=== PATIENT | male | born 1975 | race Two or more races ===

== ENCOUNTER 2020-03-02 07:41 | Emergency (ER) | payer OTHER ==
[2020-03-02 07:48] VITALS: BP 119/76; PULSE 88; TEMP 97; BMI 31.6
--- NOTE | 2020-03-02 07:50 | PDOC ---
Rapid Medical Evaluation Time Seen by Provider: 03/02/20 07:45 Medical Evaluation: Allergies Allergy/AdvReac Type Severity Reaction Status Date / Time No Known Allergies Allergy Verified 09/07/15 04:46 03/02/20 07:45 The patient is a 45 y/o M who presents to the ER for a bee sting to the back of the neck sustained just prior to arrival. Denies allergies to bees. Denies shortness of breath, wheezing, light headed, difficulty swallowing ROS RXAM: A/P: Bee sting On exam localized swelling to the L posterior neck. No evidence of erythema or secondary signs of allergic reaction Air way is open clear and maintained Ice DC home with return precautions Discharge Disposition - Diagnosis Bee sting Qualifiers: Encounter type: initial encounter Injury intent: accidental or unintentional Qualified Code(s): T63.441A - Toxic effect of venom of bees, accidental (unintentional), initial encounter - Discharge Dispostion Disposition: HOME Condition at time of disposition: Stable Decision to Admit order: No - Referrals - Patient Instructions Printed Discharge Instructions: Insect Bites and Stings Additional Instructions: You were seen for your bee sting Ice will help with the area. Follow up with your primary care doctor as needed Return to the ER for any new or worsening symptoms - Post Discharge Activity
== END 2020-03-02 08:02 | disposition home or self-care (01) ==
LOC: JER 07:41
DX: T63.441A Toxic effect of venom of bees, accidental (unintentional), initial encounter (principal)
CPT/HCPCS: 99281-25

== ENCOUNTER 2021-08-22 08:28 | Emergency (ER) | payer OTHER ==
[2021-08-22 08:44] VITALS: TEMP 97.4; BMI 33.3
[2021-08-22 11:02] LABS: HEMATOCRIT 46.9 % (35.4-49); HEMOGLOBIN 15.5 GM/dL (11.7-16.9); MCH 31.4 pg (25.7-33.7); MCHC 33.1 g/dl (32.0-35.9); MEAN PLT VOLUME 8.9 fl (7.5-11.1); PLATELET COUNT 260 10^3/uL (134-434); RBC 4.94 M/mm3 (4.00-5.60); RDW 14.4 % (11.9-15.9); WHITE BLOOD COUNT 7.7 K/mm3 (4.0-10.0)
[2021-08-22 11:33] LABS: CHLORIDE 105 mmol/L (98-107); SODIUM 142 mmol/L (136-145)
[2021-08-22 11:34] LABS: ALBUMIN 3.9 g/dl (3.4-5.0); CALCIUM 9.3 mg/dL (8.5-10.1); GLUCOSE,RANDOM 87 mg/dL (74-106)
[2021-08-22 11:35] LABS: ANION GAP 11 MMOL/L (8-16); BLOOD UREA NITROGEN 11.1 mg/dL (7-18); CO2 25 mmol/L (21-32); MAGNESIUM 2.2 mg/dL (1.8-2.4)
[2021-08-22 11:38] LABS: SGPT/ALT 39 U/L (13-61)
[2021-08-22 11:39] LABS: CREATININE 1.2 mg/dL (0.55-1.3); SGOT/AST 24 U/L (15-37)
[2021-08-22 11:40] LABS: BILIRUBIN,TOTAL 0.5 mg/dL (0.2-1); TOT PROT 7.6 g/dl (6.4-8.2)
[2021-08-22 11:41] LABS: ALK PHOS 78 U/L (45-117)
[2021-08-22 11:55] LABS: URINE APPEARANCE CLEAR; URINE BILIRUBIN NEGATIVE (NEGATIVE); URINE COLOR YELLOW; URINE GLUCOSE (UA) NEGATIVE (NEGATIVE); URINE KETONE NEGATIVE (NEGATIVE); URINE LEUK ESTERASE NEGATIVE (NEGATIVE); URINE NITRITE NEGATIVE (NEGATIVE); URINE PROTEIN TRACE (NEGATIVE); URINE UROBILINOGEN 0.2 mg/dL (0.2-1.0)
[2021-08-22 12:12] LABS: METHADONE, UR NEGATIVE (NEGATIVE)
[2021-08-22 12:13] LABS: URINE BARBITURATES NEGATIVE (NEGATIVE)
[2021-08-22 12:20] LABS: COCAINE, UR POSITIVE (NEGATIVE); OPIATES, URI POSITIVE (NEGATIVE); PHENCYCLIDINE,URINE POSITIVE (NEGATIVE); URINE AMPHETAMINES POSITIVE (NEGATIVE); URINE BENZODIAZEPINES NEGATIVE (NEGATIVE)
[2021-08-22 13:29] VITALS: BP 117/77; PULSE 89
[2021-08-22 14:37] LABS: ANISOCYTOSIS 3+; MACROCYTOSIS 0; PLATELET ESTIMATE NORMAL
== END 2021-08-22 13:37 | disposition home or self-care (01) ==
LOC: JER 08:28
DX: T40.5X1A Poisoning by cocaine, accidental (unintentional), initial encounter (principal)
CPT/HCPCS: 36415; 71045-TC-FY; 80053; 80307; 81003; 82550; 82553; 82962; 83735; 84484; 85025; 87086; 93005; 93010; 99285-25; C9803; U0003; U0005

== ENCOUNTER 2021-09-16 01:09 | Inpatient (IN) | payer OTHER ==
[2021-09-16 01:49] VITALS: BMI 33.3
[2021-09-16] MEDS ORDERED: ACETAMINOPHEN 325 MG TABLET (FP) PO PRN (03:25)
[2021-09-16] MEDS ORDERED: MENTHOL/PHENOL 1 EACH UD MM PRN (03:25)
[2021-09-16] MEDS ORDERED: chlordiazePOXIDE HCL 25 MG CAPSULE PO PRN (03:25)
[2021-09-16] MEDS ORDERED: MAGNESIUM HYDROX 2400MG/30ML ORAL SUSPENSION 30 ML CUP PO PRN (03:25)
[2021-09-16] MEDS ORDERED: BISMUTH SUBSALICYLATE 524 MG/30 ML PO PRN (03:25)
[2021-09-16] MEDS ORDERED: NICOTINE POLACRILEX 2 MG GUM BUC PRN (03:25)
[2021-09-16] MEDS ORDERED: MAG HYDROX/AL HYDROX/SIMETH 30 ML UNIT-DOSE CUP PO PRN (03:25)
[2021-09-16] MEDS ORDERED: MAGNESIUM CITRATE 300 ML BOTTLE PO PRN (03:25)
[2021-09-16] MEDS ORDERED: LOPERAMIDE HCL 2 MG CAPSULE PO PRN (03:25)
[2021-09-16] MEDS ORDERED: ONDANSETRON *ODT* 4 MG TABLET SL PRN (03:25)
[2021-09-16] MEDS: chlordiazePOXIDE HCL 25 MG CAPSULE PO SCH ×4 (05:03→22:06)
[2021-09-16] MEDS: IBUPROFEN 400 MG TABLET (FP) PO PRN (05:13)
[2021-09-16] MEDS: PRENATAL VITAMINS W/ FOLIC ACID TABLET (FP) PO SCH (10:43)
[2021-09-16] MEDS: METHOCARBAMOL 500 MG TABLET PO PRN (10:43)
[2021-09-16] MEDS: NICOTINE 14 MG/24 HOURS TOPICAL PATCH TD SCH (10:43)
[2021-09-16] MEDS: hydrOXYzine PAMOATE 25 MG CAPSULE (FP) PO PRN (10:44)
[2021-09-16] MEDS: ACETAMINOPHEN 325 MG TABLET (FP) PO PRN (10:45)
[2021-09-16 12:14] LABS: HIV INTERPRETATION NEGATIVE (NEGATIVE)
[2021-09-16] MEDS: FAMOTIDINE 20 MG TABLET PO SCH (15:26)
[2021-09-16] MEDS: THIAMINE HCL 100 MG TABLET (FP) PO SCH (22:05)
[2021-09-16] MEDS: MELATONIN 5 MG TABLETS PO SCH (22:05)
[2021-09-17] MEDS: IBUPROFEN 400 MG TABLET (FP) PO PRN (06:19)
[2021-09-17] MEDS: chlordiazePOXIDE HCL 25 MG CAPSULE PO SCH ×4 (06:21→22:06)
[2021-09-17] MEDS: hydrOXYzine PAMOATE 25 MG CAPSULE (FP) PO PRN (10:02)
[2021-09-17] MEDS: FAMOTIDINE 20 MG TABLET PO SCH (10:02)
[2021-09-17] MEDS: NICOTINE 14 MG/24 HOURS TOPICAL PATCH TD SCH (10:02)
[2021-09-17] MEDS: METHOCARBAMOL 500 MG TABLET PO PRN ×3 (10:02→23:55)
[2021-09-17] MEDS: PRENATAL VITAMINS W/ FOLIC ACID TABLET (FP) PO SCH (10:02)
[2021-09-17] MEDS: ACETAMINOPHEN 325 MG TABLET (FP) PO PRN (10:04)
[2021-09-17 11:14] LABS: HEMATOCRIT 46.3 % (35.4-49); HEMOGLOBIN 15.5 GM/dL (11.7-16.9); MCH 31.7 pg (25.7-33.7); MCHC 33.4 g/dl (32.0-35.9); MEAN CELL VOLUME 94.9 fl (80-96); MEAN PLT VOLUME 9.1 fl (7.5-11.1); PLATELET COUNT 244 10^3/uL (134-434); RBC 4.88 M/mm3 (4.00-5.60); RDW 14.2 % (11.9-15.9); WHITE BLOOD COUNT 7.7 K/mm3 (4.0-10.0)
[2021-09-17 11:27] LABS: CALCIUM 9.4 mg/dL (8.5-10.1)
[2021-09-17 11:28] LABS: ALBUMIN 3.3 g/dl (3.4-5.0); BLOOD UREA NITROGEN 14.5 mg/dL (7-18)
[2021-09-17 11:31] LABS: CREATININE 1.1 mg/dL (0.55-1.3)
[2021-09-17 11:32] LABS: BILIRUBIN,TOTAL 0.9 mg/dL (0.2-1); TOT PROT 6.7 g/dl (6.4-8.2)
[2021-09-17] MEDS ORDERED: cloNIDine HCL 0.1 MG TABLET PO PRN (13:33)
[2021-09-17 14:06] LABS: SARS-CoV-2 NAA Not Detected (Not Detected)
[2021-09-17] MEDS: THIAMINE HCL 100 MG TABLET (FP) PO SCH (22:06)
[2021-09-17] MEDS: MELATONIN 5 MG TABLETS PO SCH (22:06)
[2021-09-18] MEDS ORDERED: chlordiazePOXIDE HCL 10 MG CAPSULE PO PRN
[2021-09-18 01:25] VITALS: BP 138/95; PULSE 84; TEMP 97.7
[2021-09-18] MEDS ORDERED: chlordiazePOXIDE HCL 10 MG CAPSULE PO SCH (05:00)
[2021-09-19] MEDS ORDERED: chlordiazePOXIDE HCL 10 MG CAPSULE PO SCH (05:00)
[2021-09-20] MEDS ORDERED: chlordiazePOXIDE HCL 10 MG CAPSULE PO ONE (05:00)
== END 2021-09-18 01:40 | disposition left against medical advice (07) | DRG 770 ==
LOC: YASAS 01:09 → Y6N 04:17
PROVIDERS: ADMIT Allergy & Immunology; ATTEND Allergy & Immunology
PROC: HZ2ZZZZ Detoxification Services for Substance Abuse Treatment (ICD-10-PCS; principal; 2021-09-16)
DX: F10.230 Alcohol dependence with withdrawal, uncomplicated (principal); F41.8 Other specified anxiety disorders; F32.A Depression, unspecified; I10 Essential (primary) hypertension; K21.9 Gastro-esophageal reflux disease without esophagitis; H54.61 Unqualified visual loss, right eye, normal vision left eye; M06.9 Rheumatoid arthritis, unspecified; J32.9 Chronic sinusitis, unspecified; Z56.0 Unemployment, unspecified; Z59.01 Sheltered homelessness
CPT/HCPCS: 36415; 80053; 85027; 86780; 87389; 93005; 93010; C9803; U0003; U0005

== ENCOUNTER 2021-12-30 09:36 | Inpatient (IN) | payer OTHER ==
[2021-12-30 01:18] VITALS: BMI 32.9
[2021-12-30] MEDS ORDERED: MAGNESIUM HYDROX 2400MG/30ML ORAL SUSPENSION 30 ML CUP PO PRN (11:06)
[2021-12-30] MEDS ORDERED: NICOTINE 10 MG CARTRIDGE (INHALER) IH PRN (11:06)
[2021-12-30] MEDS ORDERED: IBUPROFEN 400 MG TABLET (FP) PO PRN (11:06)
[2021-12-30] MEDS ORDERED: BISMUTH SUBSALICYLATE 524 MG/30 ML PO PRN (11:06)
[2021-12-30] MEDS ORDERED: LOPERAMIDE HCL 2 MG CAPSULE PO PRN (11:06)
[2021-12-30] MEDS ORDERED: ACETAMINOPHEN 325 MG TABLET (FP) PO PRN (11:06)
[2021-12-30] MEDS ORDERED: ONDANSETRON *ODT* 4 MG TABLET SL PRN (11:06)
[2021-12-30] MEDS ORDERED: DICYCLOMINE HCL 10 MG CAPSULE PO PRN (11:06)
[2021-12-30] MEDS ORDERED: BENZOCAINE/MENTHOL (CHLORASEPTIC ) LOZENGE MM PRN (11:06)
[2021-12-30] MEDS ORDERED: MAGNESIUM CITRATE 300 ML BOTTLE PO PRN (11:06)
[2021-12-30] MEDS: hydrOXYzine PAMOATE 25 MG CAPSULE (FP) PO SCH ×2 (14:56→20:39)
[2021-12-30] MEDS: NICOTINE 21 MG/24 HOURS TOPICAL PATCH TD SCH (14:56)
[2021-12-31] MEDS: MELATONIN 5 MG TABLETS PO SCH ×2 (00:03→22:45)
[2021-12-31] MEDS: TOLNAFTATE 1% CREAM 15 GM TUBE TP SCH ×3 (00:04→22:46)
[2021-12-31] MEDS: hydrOXYzine PAMOATE 25 MG CAPSULE (FP) PO SCH ×6 (00:05→22:45)
[2021-12-31] MEDS: THIAMINE HCL 100 MG TABLET (FP) PO SCH ×2 (00:17→22:45)
[2021-12-31] MEDS: MAG HYDROX/AL HYDROX/SIMETH 30 ML UNIT-DOSE CUP PO PRN (05:29)
[2021-12-31] MEDS: PRENATAL VITAMINS W/ FOLIC ACID TABLET (FP) PO SCH (10:36)
[2021-12-31] MEDS: METHOCARBAMOL 500 MG TABLET PO PRN ×2 (10:37→19:07)
[2021-12-31] MEDS: NICOTINE 21 MG/24 HOURS TOPICAL PATCH TD SCH (10:37)
[2021-12-31 11:14] LABS: HEMATOCRIT 43.4 % (35.4-49); MCH 32.5 pg (25.7-33.7); MCHC 34.6 g/dl (32.0-35.9); MEAN CELL VOLUME 93.7 fl (80-96); MEAN PLT VOLUME 8.9 fl (7.5-11.1); PLATELET COUNT 227 10^3/uL (134-434); RBC 4.63 M/mm3 (4.00-5.60); RDW 13.9 % (11.9-15.9); WHITE BLOOD COUNT 7.3 K/mm3 (4.0-10.0)
[2021-12-31 11:15] LABS: CALCIUM 8.9 mg/dL (8.5-10.1)
[2021-12-31 11:16] LABS: ALBUMIN 3.3 g/dl (3.4-5.0); BLOOD UREA NITROGEN 14.4 mg/dL (7-18)
[2021-12-31 11:19] LABS: CREATININE 1.1 mg/dL (0.55-1.3)
[2021-12-31 11:20] LABS: TOT PROT 6.4 g/dl (6.4-8.2)
[2021-12-31 11:31] LABS: BILIRUBIN,TOTAL 0.6 mg/dL (0.2-1)
[2021-12-31] MEDS: ASCORBIC ACID 250 MG TABLET (FP) PO SCH (15:38)
[2021-12-31] MEDS: diazePAM 5 MG TABLET PO SCH ×2 (19:07→22:45)
[2022-01-01] MEDS: diazePAM 5 MG TABLET PO SCH ×3 (06:19→22:02)
[2022-01-01] MEDS: hydrOXYzine PAMOATE 25 MG CAPSULE (FP) PO SCH ×5 (06:20→22:01)
[2022-01-01] MEDS: NICOTINE 21 MG/24 HOURS TOPICAL PATCH TD SCH (09:28)
[2022-01-01] MEDS: ASCORBIC ACID 250 MG TABLET (FP) PO SCH (09:28)
[2022-01-01] MEDS: PRENATAL VITAMINS W/ FOLIC ACID TABLET (FP) PO SCH (09:28)
[2022-01-01] MEDS: TOLNAFTATE 1% CREAM 15 GM TUBE TP SCH ×2 (09:29→22:02)
[2022-01-01] MEDS: diazePAM 5 MG TABLET PO PRN ×2 (09:43→16:55)
[2022-01-01] MEDS: ACETAMINOPHEN 325 MG TABLET (FP) PO PRN (09:44)
[2022-01-01] MEDS: amLODIPine BESYLATE 5 MG TABLET (FP) PO SCH (13:06)
[2022-01-01] MEDS: METHOCARBAMOL 500 MG TABLET PO PRN (16:56)
[2022-01-01] MEDS: MELATONIN 5 MG TABLETS PO SCH (22:01)
[2022-01-01] MEDS: THIAMINE HCL 100 MG TABLET (FP) PO SCH (22:01)
[2022-01-01] MEDS: MAG HYDROX/AL HYDROX/SIMETH 30 ML UNIT-DOSE CUP PO PRN (22:55)
[2022-01-02] MEDS: diazePAM 5 MG TABLET PO SCH ×2 (06:19→18:02)
[2022-01-02] MEDS: hydrOXYzine PAMOATE 25 MG CAPSULE (FP) PO SCH ×5 (06:19→23:22)
[2022-01-02] MEDS: NICOTINE 21 MG/24 HOURS TOPICAL PATCH TD SCH (10:22)
[2022-01-02] MEDS: METOPROLOL TARTRATE 25 MG TABLET (FP) PO SCH (10:22)
[2022-01-02] MEDS: guaiFENesin 600 MG TABLET.ER (FP) PO SCH ×2 (10:22→23:22)
[2022-01-02] MEDS: METHOCARBAMOL 500 MG TABLET PO PRN (10:22)
[2022-01-02] MEDS: amLODIPine BESYLATE 5 MG TABLET (FP) PO SCH (10:22)
[2022-01-02] MEDS: ASCORBIC ACID 250 MG TABLET (FP) PO SCH (10:22)
[2022-01-02] MEDS: PRENATAL VITAMINS W/ FOLIC ACID TABLET (FP) PO SCH (10:22)
[2022-01-02] MEDS: TOLNAFTATE 1% CREAM 15 GM TUBE TP SCH ×2 (10:23→23:22)
[2022-01-02] MEDS: diazePAM 5 MG TABLET PO PRN ×2 (10:43→14:25)
[2022-01-02] MEDS: ACETAMINOPHEN 325 MG TABLET (FP) PO PRN (10:43)
[2022-01-02] MEDS ORDERED: LACTULOSE 20 GM/30 ML UDC (FOR ORAL USE ONLY) PO ONE (14:42)
[2022-01-02] MEDS: MELATONIN 5 MG TABLETS PO SCH (23:21)
[2022-01-02] MEDS: THIAMINE HCL 100 MG TABLET (FP) PO SCH (23:22)
[2022-01-03] MEDS: LACTULOSE 20 GM/30 ML UDC (FOR ORAL USE ONLY) PO SCH ×3 (00:47→09:22)
[2022-01-03] MEDS ORDERED: diazePAM 5 MG TABLET PO ONE (06:00)
[2022-01-03] MEDS: hydrOXYzine PAMOATE 25 MG CAPSULE (FP) PO SCH ×2 (06:06→09:26)
[2022-01-03 09:15] VITALS: BP 138/59; PULSE 102; TEMP 98.9
[2022-01-03] MEDS: TOLNAFTATE 1% CREAM 15 GM TUBE TP SCH (09:23)
[2022-01-03] MEDS: ASCORBIC ACID 250 MG TABLET (FP) PO SCH (09:23)
[2022-01-03] MEDS: amLODIPine BESYLATE 5 MG TABLET (FP) PO SCH (09:23)
[2022-01-03] MEDS: guaiFENesin 600 MG TABLET.ER (FP) PO SCH (09:23)
[2022-01-03] MEDS: METOPROLOL TARTRATE 25 MG TABLET (FP) PO SCH (09:23)
[2022-01-03] MEDS: NICOTINE 21 MG/24 HOURS TOPICAL PATCH TD SCH (09:26)
[2022-01-03] MEDS: PRENATAL VITAMINS W/ FOLIC ACID TABLET (FP) PO SCH (10:05)
== END 2022-01-03 10:35 | disposition home or self-care (01) | DRG 774 ==
LOC: YASAS 09:36 → UNDOADMIN 13:40 → Y6N 13:40
PROVIDERS: ADMIT Allergy & Immunology; ATTEND Surgery
PROC: HZ2ZZZZ Detoxification Services for Substance Abuse Treatment (ICD-10-PCS; principal; 2022-01-01)
DX: F10.230 Alcohol dependence with withdrawal, uncomplicated (principal); F14.20 Cocaine dependence, uncomplicated; F12.20 Cannabis dependence, uncomplicated; F17.210 Nicotine dependence, cigarettes, uncomplicated; F19.282 Other psychoactive substance dependence with psychoactive substance-induced sleep disorder; F19.24 Other psychoactive substance dependence with psychoactive substance-induced mood disorder; U07.1 COVID-19; H54.61 Unqualified visual loss, right eye, normal vision left eye; I10 Essential (primary) hypertension; K21.9 Gastro-esophageal reflux disease without esophagitis
CPT/HCPCS: 36415; 80053; 82140; 82962; 83036; 85027; 86780; C9803-CS; U0003; U0005

== ENCOUNTER 2022-03-05 04:31 | Emergency (ER) | payer OTHER ==
[2022-03-05 04:43] VITALS: BP 172/102; PULSE 89; RESP 18; TEMP 98.1; BMI 33.3
== END 2022-03-05 06:02 ==
LOC: JER 04:31
DX: R22.0 Localized swelling, mass and lump, head (principal)
CPT/HCPCS: 70450-TC; 99284-25